=== PATIENT | male | born 1965 | race Caucasian/White ===

== ENCOUNTER 2019-08-21 20:51 | Emergency (ER) | payer OTHER, SELFPAY ==
[2019-08-21 20:52] VITALS: BP 147/91; PULSE 97; RESP 18; TEMP 36.8; O2SAT 96; BMI 29.6
--- NOTE | 2019-08-21 21:26 | EKG12_ITS ---
Test Reason : SOB Blood Pressure : / mmHG Vent. Rate : 092 BPM Atrial Rate : 092 BPM P-R Int : 158 ms QRS Dur : 090 ms QT Int : 348 ms P-R-T Axes : 052 -13 021 degrees QTc Int : 430 ms Normal sinus rhythm Normal ECG Confirmed by CHIKI TOTH MD ([id number]), makeup editor MARIPOSA RUTLEDGE ([id number] on 08/25/2019 2:58:11 PM Referred By: MIMA Confirmed By:CHIKI TOTH MD
--- NOTE | 2019-08-21 21:27 | ED.VISSUMM ---
- ER Visit Summary Date of Service: 08/21/19 Chief Complaint: Shortness of breath and right-sided chest pain History of Present Illness: The patient is a 53 M who presents with shortness of breath and right-sided chest pain that began yesterday. Patient states pain is getting progressively worse. Patient states the pain is sharp. Patient states the pain is on the right side of his chest and radiates into his back. Patient states the pain is worse with deep breathing and with movement. Patient states he has been taking Tylenol and ibuprofen with no improvement. Patient admits to subjective chills but denies any fevers. Patient also admits to some rhinorrhea. Patient admits to a cough but denies any sputum production. 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 Patient denies any recent travel. Physical Examination: Vital signs are stable. Patient is afebrile. Patient is in no acute distress. Oral mucosa is pink and moist. Neck is supple. Trachea is midline. There is no JVD. Heart was regular rate and rhythm. Lungs are diminished bilaterally. There is adequate respiratory effort. This was limited secondary to pain. Abdomen is soft. Bowel sounds are normal. There is no tenderness. Cranial nerves II through XII are intact. There are no focal motor or sensory deficits. Test Results: EKG showed a normal sinus rhythm with a rate of 92. There are no acute ST or T wave changes. This is unchanged compared to previous EKG dated 08/29/2016. CBC, comprehensive metabolic profile, RSV swab, influenza swab, and rapid strep swab were all obtained were within normal limits. Portable chest x-ray was obtained. There is a left retrocardiac density representing atelectasis or pneumonia. This was interpreted by the radiologist and reviewed by myself. Emergency Department Course and Treatment: Patient was given a dose of [place] here. Patient was given a dose of Zithromax here. Patient was given prescriptions for [place] and Zithromax. Patient was instructed to follow-up with his primary care physician in 3 to 5 days. Patient does not meet criteria for COVID testing at this time. Patient understood and was agreeable with the plan. All questions were answered. Disposition: Discharge home Impression: 1. Pneumonia This note was generated with [employer] software. It may contain incorrect words, spelling, and punctuation that were not noted in review of the chart prior to signing ED Disposition - Plan for ED Patient: Disposition: Home or Assisted Living Diagnosis: Pneumonia Instructions: ED PNEUMONITIS Adult Prescriptions: Hydrocodone Bitart/Apap 5-325 [[place] 5MG-325MG] 1 tab PO Q6H PRN PRN 3 Days #10 tab PRN Reason: Pain Prescription Printed Azithromycin [Zithromax] 250 mg PO DAILY #4 tab Prescription Printed Referrals: Jim,Marissa, DO [Primary Care Provider] - 3-5 Days
[2019-08-21] MEDS: 0.9% Normal Saline 1,000 ML 1000 ML IV (21:46)
[2019-08-21] MEDS: Morphine 4 MG/ML Syringe IV (21:47)
[2019-08-21 21:57] VITALS: BP 126/85; PULSE 87; RESP 18; TEMP 36.8; O2SAT 97; O2SAT 98
[2019-08-21 22:07] VITALS: BP 129/87; PULSE 85; RESP 22; TEMP 36.8; O2SAT 97
[2019-08-21 22:08] LABS: Absolute Neutrophil Count 4.9 X10^3/uL (2.0-7.7); Basophil# 0.05 X10^3/uL; Basophil% 0.5 % (0-1); Eosinophil# 0.27 X10^3/uL; Eosinophils% 2.7 % (0-5); Hematocrit 40.2 % (40-54); Hemoglobin 13.3 g/dL (13.0-16.5); Lymphocyte % 35.1 % (19-41); Mean Corp Hgb Conc 33.1 g/dL (32-36); Mean Corpuscular Hgb 29.9 pg (27.0-32.0); Mean Corpuscular Volume 90.3 fL (80-94); Mean Platelet Vol. 10.8 fl (6.2-12.0); Monocyte# 1.19 X10^3/uL; Monocyte% 11.9 % (0-10); NRBC Flagged by Analyzer 0 % (0-5); Neutrophil # 4.94 X10^3/uL (2.7-7.7); Neutrophil % 49.6 % (47-70); Platelet Count 237 K/mm3 (150-450); RBC Distribution Width SD 46.2 fl (35.1-43.9); Red Blood Count 4.45 M/mm3 (4.6-6.2)
[2019-08-21 22:09] VITALS: O2SAT 97
--- NOTE | 2019-08-21 22:18 | RAD_ITS ---
STUDY: X-RAY CHEST REASON FOR EXAM: Male, 53 years old. CHEST PAIN WITH SOME SOB TECHNIQUE: AP portable COMPARISON: None. FINDINGS: There is less than optimal inspiratory effort. Right lung is clear. There is increased retrocardiac density at left base possibly representing mild atelectasis or infiltrate.. There is no demonstrated pleural abnormality. Normal size heart. Normal mediastinum and mathew. Normal visualized pulmonary arteries. Normal visualized aortic arch and descending thoracic aorta. Spine demonstrates degenerative changes.. Normal visualized, clavicles, and shoulders. Old healed left rib fracture There is no demonstrated abnormality of the visualized soft tissue structures of the upper abdomen. RAD/Chest 1 View (Portable) IMPRESSION: Increased left retrocardiac density possibly representing mild atelectasis or evolving infiltrate. Correlation with lateral view would be helpful for further evaluation Electronically Signed: Wan Paez MD at 22:38 EDT , Service support ,
[2019-08-21 22:28] LABS: ALB/GLOB Ratio 1.1 RATIO (0.9-2.4); AST(SGOT) 13 U/L (15-37); Alanine Aminotransfer ALT/SGPT 24 U/L (16-61); Albumin, Serum 3.4 g/dL (3.2-5.0); Alkaline Phosphatase 73 U/L (45-117); Anion Gap 5 (5-15); BUN 10 mg/dL (7-18); BUN/Creat Ratio 14.7 RATIO (10-20); Calcium,Total 7.9 mg/dL (8.5-10.1); Chloride 109 mmol/L (98-107); Creatinine, Serum 0.68 mg/dL (0.70-1.30); EST Glomerular Filtration Rate 129 mL/min (>60); Est Glom Filt Rate - Afr Amer 156 mL/min (>60); Estimated Creatinine Clearance 133.81 ml/min; Globulin 3.2 g/dL (2.2-4.2); Glucose 116 mg/dL (74-106); Potassium 3.6 mmol/L (3.5-5.1); Protein, Total 6.6 g/dL (6.4-8.2); Sodium Level 142 mmol/L (136-145)
[2019-08-21 22:52] VITALS: BP 120/92; PULSE 83; RESP 22; O2SAT 96
[2019-08-21 23:00] VITALS: BP 120/92; PULSE 83; RESP 22; TEMP 36.8; O2SAT 96
[2019-08-21] MEDS: HYDROcodone Bitartrate/Apap 5/325 Tablet PO (23:43)
[2019-08-21] MEDS: Azithromycin 250 MG Tablet 500 MG PO (23:43)
== END 2019-08-21 23:48 | disposition home or self-care (01) ==
PROVIDERS: Emergency Provider Emergency Medicine; PCP Internal Medicine
DX: J18.9 Pneumonia, unspecified organism (principal)
CPT/HCPCS: 71045; 80053; 84484; 85025; 87804; 87807; 87880; 93005; 96361; 96374; 99285; J7030; A4216

== ENCOUNTER → 2019-08-22 | Outpatient (CLI) | payer OTHER, SELFPAY ==
[2019-08-21 20:52] VITALS: BMI 29.6
[2019-08-22 17:02] LABS: D-Dimer Quantitative (DVT/PE) 0.32 FEU/ug/m (0.27-0.49)
== END | disposition home or self-care (01) ==
LOC: LABSPEC 13:06 → LAB 16:35
PROVIDERS: PCP Internal Medicine; Referring Provider Internal Medicine; Visit Provider Internal Medicine
DX: R07.81 Pleurodynia (principal)
CPT/HCPCS: 36415; 85379

== ENCOUNTER → 2024-08-05 | Outpatient (CLI) | payer BC, SELFPAY ==
--- NOTE | 2024-08-05 08:05 | CT_ITS ---
PROCEDURE: EXTREMITY LOWER WITHOUT CONTRA 08/05/2024 REASON FOR EXAM: LEFT KNEE ADRYAN PROTOCOL / PRE OP Adryan protocol. TECHNIQUE: Axial CT images of the left lower extremity obtained without intravenous contrast. Coronal and Sagittal reconstruction series were provided. One or more dose reduction techniques were used (e.g., Automated exposure control, adjustment of the mA and/or kV according to patient size, use of iterative reconstruction technique). RADIATION DOSE SUMMARY: CTDlvol: 19 mGy DLP: 1390.58 mGycm COMPARISON: None FINDINGS: Bones: No evidence of fracture. Joints: Imaging of the left hip joint was obtained. There is good alignment. No significant joint space narrowing is seen. Imaging of the left knee joint was performed. Mild degree of joint space narrowing involving the medial compartment of the knee joint with a subchondral sclerosis and degenerative spur formation. Mild degree of patellofemoral osteoarthritis. Imaging of the ankle joint was obtained. No significant abnormality is seen. Calcaneal spur. Soft Tissues: Small knee joint effusion. CT/Extremity Lower without Contra IMPRESSION: Osteoarthritis of the medial compartment of the knee joint with subchondral scl erosis and degenerative spur formation. Small joint effusion. Reading Location: [place] [id number]
--- NOTE | 2024-08-05 08:06 | EKG12_ITS ---
Test Reason : PREOP Blood Pressure : */* mmHG Vent. Rate : 74 BPM Atrial Rate : 74 BPM P-R Int : 162 ms QRS Dur : 80 ms QT Int : 374 ms P-R-T Axes : 57 0 -17 degrees QTcB Int : 415 ms Normal sinus rhythm Normal ECG Confirmed by NAVNEET NICKERSON, CHIKI ([id number]), sound editor GUERRERO CALDERON ([id number]) on 08/06/2024 7:55:48 AM Referred By: Angelito Oviedo Confirmed By: CHIKI TOTH MD
[2024-08-05 09:06] LABS: Absolute Lymphocyte Count 2.81 X10^3/uL (0.83-4.51); Absolute Neutrophil Count 3.8 X10^3/uL (2.0-7.7); Basophil# 0.08 X10^3/uL; Eosinophil# 0.31 X10^3/uL; Eosinophils% 4.1 % (0-5); Hematocrit 46.8 % (40-54); Hemoglobin 15.6 g/dL (13.0-16.5); Lymphocyte # 2.81 X10^3/ul (0.83-4.51); Lymphocyte % 36.8 % (19-41); Mean Corp Hgb Conc 33.3 g/dL (32-36); Mean Corpuscular Hgb 31.2 pg (27.0-32.0); Mean Corpuscular Volume 93.6 fL (80-94); Mean Platelet Vol. 10.5 fl (6.2-12.0); Monocyte# 0.63 X10^3/uL; Monocyte% 8.3 % (0-10); NRBC Flagged by Analyzer 0 % (0-5); Neutrophil # 3.78 X10^3/uL (2.7-7.7); Neutrophil % 49.5 % (47-70); Platelet Count 276 K/mm3 (150-450); RBC Distribution Width CV 14.2 % (11.6-14.6); RBC Distribution Width SD 48.6 fl (35.1-43.9); White Blood Count 7.6 K/mm3 (4.4-11.0)
[2024-08-05 10:30] LABS: Albumin, Serum 4.4 g/dL (3.5-5.0); Anion Gap 10 (5-15); BUN 13 mg/dL (4-19); BUN/Creat Ratio 16.4 RATIO (10-20); Calcium,Total 8.9 mg/dL (7.6-11.0); Chloride 106 mmol/L (98-108); Creatinine, Serum 0.76 mg/dL (0.70-1.20); EST Glomerular Filtration Rate 104 (>60); Glucose 91 mg/dL (70-99); Potassium 4.7 mmol/L (3.3-5.1); Sodium Level 142 mmol/L (133-145)
== END | disposition home or self-care (01) ==
LOC: CT 08:00
PROVIDERS: Referring Provider Specialist; Visit Provider Specialist
DX: Z01.818 Encounter for other preprocedural examination (principal); M17.32 Unilateral post-traumatic osteoarthritis, left knee; M21.162 Varus deformity, not elsewhere classified, left knee; Z01.810 Encounter for preprocedural cardiovascular examination
CPT/HCPCS: 36415; 73700; 80048; 82040; 85025; 93005

== ENCOUNTER → 2024-09-10 | Outpatient (CLI) | payer BC, SELFPAY ==
--- NOTE | 2024-09-10 10:58 | VDLE_ITS ---
Reason For Study Reason For Study: LLE Swelling RIGHT LEFT CFV is compressible, spontaneous, phasic, competent GSV is normal. and demonstrates normal augmentation. CFV is compressible, spontaneous, phasic, competent, Procedure and demonstrates normal augmentation. This is a venous duplex using B-mode, color flow and FV is compressible, spontaneous, phasic, competent spectral Doppler. and demonstrates normal augmentation. Exam performed in department. POP V is compressible, spontaneous, phasic, competent The exam was diagnostic. and demonstrates normal augmentation. A preliminary report was called and/or faxed to T/[facility] Trunk is compressible. [facility]. PTV is compressible. LT PerV is compressible. Nonvascularized area of mixed echogenicity noted at Lt Medial Knee measuring approximately 8.49cm x 2.34cm. VL/Venous Duplex US, Unilateral Interpretation Summary Deep veins of the left lower extremity are patent and compressible segmentally. There is no evidence of left lower extremity deep vein thrombosis. The left great saphenous vein appears patent an d compressible segmentally. Nonvascularized area of mixed echogenicity noted at left medial knee measuring approximately 8.49cm x 2.34cm Ordering Physician: Angelito Oviedo Referring Physician: N/A Performed By: Jose Billingsley RVT
== END | disposition home or self-care (01) ==
LOC: CVS 10:55
PROVIDERS: Referring Provider Specialist; Visit Provider Specialist
DX: R22.42 Localized swelling, mass and lump, left lower limb (principal)
CPT/HCPCS: 93971